=== PATIENT | male | born 1945 | race Two or more races ===

== ENCOUNTER 2017-08-16 17:26 | Emergency (ER) | payer OTHER ==
[~2017-08-16] VITALS: Ht 182.9 cm; Wt 95.3 kg
[~2017-08-16 17:26] MED LIST: ATIVAN2 MG PO; COZAAR50 MG PO; LIPITOR20 MG PO; METFORMIN HCL500 M1 PO; TAMS0.4C; VIAGRA100 MG
== END 2017-08-16 21:58 | disposition home or self-care (01) ==
LOC: ER 17:26
DX: R06.02 Shortness of breath (principal)

== ENCOUNTER 2018-08-15 11:59 | Emergency (ER) | payer OTHER ==
[~2018-08-15] VITALS: Ht 182.9 cm; Wt 97.5 kg
== END 2018-08-15 16:34 | disposition home or self-care (01) ==
LOC: ER 11:59
DX: R06.02 Shortness of breath (principal); J22 Unspecified acute lower respiratory infection

== ENCOUNTER 2019-01-02 10:27 | Outpatient (CLI) | payer OTHER | END 2019-01-02 10:41 | disposition home or self-care (01) | LOC: RAD 501 10:27 | DX: J80 Acute respiratory distress syndrome (principal) ==